=== PATIENT | male | born 1940 | race Caucasian/White ===

== ENCOUNTER 2018-02-03 02:19 | Inpatient (IN) | payer SELFPAY ==
[2018-02-03] VITALS (7 sets, daily range): BP systolic 124–158; BP diastolic 63–71
[~2018-02-03] VITALS: Ht 175.3 cm; Wt 103.1 kg
--- NOTE | 2018-02-03 02:28 | ED.ADGEN ---
Past History Past Medical History: Asthma Adult General Chief Complaint Chief Complaint ".. I just moved here from [facility]. .. I got were ... I could not breath... I got Asthma... ".. My meds are not working..." HPI HPI Patient is a 77 year old male who presents with above hx and complaints of hypoxia and asthma exacerbation. Pt. visiting his son here in [place] from [facility]. the past couple week. Pt. Hx. of prior admits for Asthma exacerbations, but not in last few years. Pt. does not know his best peak flow. Pt. has been on his home meds. Cortan (Prenisolone 10mg) , Salbutamol 12 mg and increased his albuterol usage with out any improvement. Pt. denies specific ill contacts. Pt. not normally on oxygen. Paramedics report on arrival in severe distress with low sats. Now after multiple tx's, sats are 91 % on 2 lt.NC. Review of Systems Review of Systems Constitutional: subject fever or chills [] Eyes: Denies change in visual acuity, redness, or eye pain [] HENT: Denies nasal congestion or sore throat [] Respiratory: Hx cough, shortness of breath , wheezing Cardiovascular: No additional information not addressed in HPI [] GI: Denies abdominal pain, nausea, vomiting, bloody stools or diarrhea [] : Denies dysuria or hematuria [] Musculoskeletal: Denies back pain or joint pain [] Integument: Denies rash or skin lesions [] Neurologic: Denies headache, focal weakness or sensory changes [] Endocrine: Denies polyuria or polydipsia [] All other systems were reviewed and found to be within normal limits, except as documented in this note. Family History Family History Non-contributory Current Medications Current Medications See Nursing for home meds Allergies Allergies No known drug allergies Physical Exam Physical Exam Constitutional: in acute distress, non-toxic appearance. [] HENT: Normocephalic, atraumatic, bilateral external ears normal, oropharynx moist, no oral exudates, nose rhinorrhea. Eyes: PERRLA, EOMI, conjunctiva normal, no discharge. [] Neck: Normal range of motion, no tenderness, supple, no stridor. [] Cardiovascular:Tachycardia Heart rate regular rhythm, no murmur []PMI to Lt. Monitor had Afib/Aflut. Resolved shortly to a sinus. Lungs & Thorax: Bilateral breath sounds equal at apexes, with diffuse wheezing throughout, and some basilar crackles on the left with auscultation []. Does have a concerning finding of right breast mass with nipple retraction. (Pt. reports this has been present more than year) Abdomen: Bowel sounds normal, soft, no tenderness, no masses, no pulsatile masses. [] Skin: Warm, dry, no erythema, no rash. [] Multiple skin lesions Back: No tenderness, no CVA tenderness. [] Extremities: No tenderness, no cyanosis, no clubbing, ROM intact, trace ankle edema. [] Neurologic: Alert and oriented X 3, normal motor function, normal sensory function, no focal deficits noted. [] Psychologic: Affect anxious, judgement normal, mood normal. [] Current Patient Data Vital Signs Vital Signs Date Time Temp Pulse Resp B/P (MAP) Pulse Ox O2 Delivery O2 Flow Rate FiO2 02/03/18 02:21 98.2 76 23 92 Room Air EKG EKG My interpretation of EKG shows irregular p's with Vent. rate 73[] Lt. Fascicular block, Anterior Lateral Changes, Strain pattern. Radiology/Procedures Radiology/Procedures My interpretation of CXR shows Hyper ext. pansion, blunting Lt hahn phrenic angle[], borderline cardiac silhouette. CT of chest pending at time of admission. Course & Med Decision Making Course & Med Decision Making Pertinent Labs and Imaging studies reviewed. (See chart for details) Discussed presentation, testing and tx. plan Dr. Crawford , will admit for further eval and tx. [] Final Impression Final Impression 1. Respiratory Failure- Hypoxia 2. Asthma Exacerbation[] 3. Accelerated Hypertension 4. Episodic Afib/Flutter/Multifocal Atrial rhythms 5. Bronchitis 6. Elev. D-dimer 7. Rt. Breast Mass- adenopathy and nipple retraction Dragon Disclaimer Dragon Disclaimer This electronic medical record was generated, in whole or in part, using a voice recognition dictation system. EDDIE JIMENES MD Feb 03, 2018 02:28
[2018-02-03] MEDS ORDERED: IPRATRPIUM/ALBUTEROL 0.5/2.5MG 3 ML NEBU. ONE (02:40)
--- NOTE | 2018-02-03 02:54 | EKG ---
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
[2018-02-03] MEDS ORDERED: methylPREDNISolone SOD SUCC PF 125 MG/2 ML VIAL. IV ONE (03:00)
[2018-02-03] MEDS ORDERED: ASPIRIN 81 MG TAB.CHEW PO ONE (03:00)
[2018-02-03] MEDS ORDERED: AZITHROMYCIN 250 MG TABLET. PO ONE (03:00)
[2018-02-03] MEDS ORDERED: NITROGLYCERIN OINT 1 GM PACKET. TP ONE (03:00)
[2018-02-03] MEDS ORDERED: IV RINGERS SOLUTION,LACTATED 1,000 ML IV SCH (03:00)
[2018-02-03] MEDS ORDERED: IPRATRPIUM/ALBUTEROL 0.5/2.5MG 3 ML NEBU. NEB ONE (03:00)
[2018-02-03 03:15] LABS: BGAS PH 7.37 (7.35-7.46)
[2018-02-03 03:38] LABS: BASO % 0 % (0-3); EOS # 0.5 x10^3/uL (0.0-0.7); EOS % 4 % (0-3); HEMOGLOBIN 14.5 g/dL (13.0-17.5); LYMPH # 1.6 x10^3/uL (1.0-4.8); LYMPH % 15 % (24-48); MEAN CORPUSCULAR HEMOGLOBIN 30 pg (25-35); MEAN CORPUSCULAR HGB CONC 34 g/dL (31-37); MEAN CORPUSCULAR VOLUME 90 fL (79-100); MONO # 0.7 x10^3/uL (0.0-1.1); MONO % 7 % (0-9); NEUT # 7.9 x10^3uL (1.8-7.7); NEUT % 74 % (31-73); PLATELET COUNT 153 x10^3/uL (140-400); RED CELL DISTRIBUTION WIDTH 14.6 % (11.5-14.5); WHITE BLOOD COUNT 10.7 x10^3/uL (4.0-11.0)
[2018-02-03 04:05] LABS: ALBUMIN 3.5 g/dL (3.4-5.0); CALCIUM 8.8 mg/dL (8.5-10.1); CREATININE 1.4 mg/dL (0.7-1.3); DIRECT BILIRUBIN 0.1 mg/dL (0.0-0.2); GFR 49.1; MAGNESIUM 2.1 mg/dL (1.8-2.4); POTASSIUM 3.9 mmol/L (3.5-5.1); TOTAL BILIRUBIN 0.4 mg/dL (0.2-1.0); TOTAL PROTEIN 7.8 g/dL (6.4-8.2)
[2018-02-03] MEDS ORDERED: ANTI-COAG MONITOR BY PHARMACY. MC PRN (04:45)
[2018-02-03] MEDS ORDERED: CONTRAST GIVEN MC PRN (04:45)
[2018-02-03] MEDS ORDERED: ENOXAPARIN ** NOTE DOSE ** SYRINGE SQ ONE (05:00)
[2018-02-03] MEDS ORDERED: IOHEXOL 300 MG/ML 75 ML VIAL. IV ONE (05:00)
--- NOTE | 2018-02-03 05:55 | RAD ---
INDICATION: SHORTNESS OF BREATH
GAVE OMNI 300 60ML - REDUCED DOSE PROTOCOL, GFR 56 COMPARISON: None. TECHNIQUE: Axial CT images obtained through the chest. Intravenous contrast utilized. Angiogram 3D images processed per protocol. One or more of the following individualized dose reduction techniques were utilized for this examination: 1. Automated exposure control; 2. Adjustment of the mA and/or kV according to patient size; 3. Use of iterative reconstruction technique. FINDINGS: Linear opacities at lung bases. There is also some groundglass opacities at lung bases. 4 mm nodule along the fissure on the right. There is also a sub-4 mm nodular opacity at right lung base. Small hiatal hernia. Calcific atherosclerosis is identified. The ascending thoracic aorta is prominent in size measuring up to about 44 mm. Motion partially obscures the ascending thoracic aorta. Possible focal dissection within the proximal superior mesenteric artery versus artifact through the lumen. The vessel appears patent distal to this site. Coronary artery calcific atherosclerosis. Within the right breast there is a masslike structure identified measuring approximately 48 x 28 mm with some adjacent suspected nodules within the right breast. There is retraction of the skin evident. Degenerative changes of spine. IMPRESSION: No central pulmonary embolus. Within the right anterior chest wall there is a masslike structure identified with some adjacent masslike nodule seen as well as skin retraction. Would correlate with exam finding since a breast neoplasm can have this appearance. May be helpful to obtain a follow-up ultrasound and mammogram to further evaluate when the services are available. Couple of sub-4 mm pulmonary nodules. There is some mild groundglass and linear opacities at the lung bases. Given the location this could all be from atelectasis unless there is high clinical concern for infection. There is some dilatation of the ascending thoracic aorta. Possible focal dissection within the proximal superior mesenteric artery versus artifact through the lumen. The vessel appears patent distal to this site. Fleischner Society recommendations for solitary solid lung nodule follow up.: In a low risk patient: <6mm - No follow up required. 6-8mm - 6-[address], then CT at 18-24 months. >8mm - CT at 3 months, PET/CT or tissue sampling. In a high risk patient (history of smoking or other known risk factors): <6mm - Follow up CT at 12 months. 6-8mm - 6-[address], then CT at 18-24 months. >8mm - CT at 3 months, PET/CT or tissue sampling. Fleischner Society recommendations for multiple solid lung nodule follow up.: In a low risk patient: <6mm - No follow up required. 6-8mm - 3-[address], then CT at 18-24 months. >8mm - CT at 3-6 months, then at 18-24 months. PET/CT or tissue sampling based on most suspicious nodule. In a high risk patient (history of smoking or other known risk factors): <6mm - Follow up CT at 12 months. 6-8mm - 3-[address], then CT at 18-24 months. >8mm - CT at 3-6 months, PET/CT or tissue sampling option based on most suspicious nodule. Electronically signed by: Uche Rios MD (02/03/2018 5:51 AM) [facility]
[2018-02-03] MEDS: IPRATRPIUM/ALBUTEROL 0.5/2.5MG 3 ML NEBU. NEB SCH ×4 (08:00→20:21)
--- NOTE | 2018-02-03 08:40 | RAD ---
PORTABLE CHEST 1V Clinical Indication: SHORTNESS OF BREATH Comparison: None. Findings: Tortuous thoracic aorta. Cardiac size is normal. No pulmonary vascular congestion. Mild bibasilar airspace disease. There is no pneumothorax. No pleural effusion is appreciated. No acute bone abnormality. IMPRESSION: Mild bibasilar airspace disease. Electronically signed by: Inder Victoria MD (02/03/2018 8:37 AM) [id number]
[2018-02-03] MEDS ORDERED: methylPREDNISolone SOD SUCC PF 125 MG/2 ML VIAL. IV SCH (09:00)
[2018-02-03] MEDS: IV NORMAL SALINE 1,000ML 1,000 ML IV SCH ×2 (11:55→20:27)
[2018-02-03] MEDS: ENOXAPARIN 40 MG/0.4 ML SYRINGE. SQ SCH (11:55)
--- NOTE | 2018-02-03 12:32 | HP ---
ADMIT DATE: 02/03/2018 HISTORY OF PRESENT ILLNESS: The patient is a 77-year-old male patient originally from [facility] who lives in [place] and apparently came to visit his son who started complaining of shortness of breath last Friday and his shortness of breath has worsened such that he could not sleep last night, he was unable to lie flat and had recurrent bouts of cough, chest tightness, whitish sputum, and he has been taking his prednisolone, salbutamol as well as his inhaled steroid without much improvement. He denied any chills, rigors, or fever. Apparently, the last time he was admitted because of this problem was in 2000 in [place]. He was extensively investigated in the Emergency Room and has had a chest x-ray, which showed hyperinflation with blunting of the left costophrenic angle. His D-dimer was slightly elevated, so he also had had a CT angio of the chest and was treated with nebulized treatment as well as steroids and IV antibiotic, and was admitted for inpatient treatment with diagnosis of acute asthma exacerbation and acute hypoxic respiratory failure. His blood pressure was high and apparently while in the Emergency Room, he has had episode of atrial fibrillation, flutter/multifocal atrial tachycardia and his D-dimer was elevated. He has a right breast mass with adenopathy and nipple retraction. PAST SURGICAL HISTORY: Unremarkable. ALLERGIES: He has no known drug allergies. MEDICATIONS: He is currently on following medications: He is on beclomethasone inhaler, prednisolone 10 mg once a day, and salbutamol 12 mg. He is not on oxygen at home. FAMILY HISTORY: He has 1 sister, alive, lives in [facility], 1 sister , has 5 brothers, all . Two of them had myocardial infarction, 1 had hypertension and 3 known to have type 2 diabetes. His father at the age of 85 because of CVA and mother at the age of 60 because of diabetes mellitus. SOCIAL HISTORY: He is , has 3 sons and 3 daughters. One daughter of breast cancer. He never smoked, does not drink alcohol. He used to work for an [employer] in [facility].. REVIEW OF SYSTEMS: The patient denied any blurring of vision, cataract, glaucoma, or macular degeneration. Denied any earache, tinnitus, or sensorineural deafness. Denied any nosebleeds, stuffy nose, or postnasal drip. Denied any sore throat, sore tongue, toothache, hoarseness of voice or difficulty swallowing. He denied any dysuria, frequency, or hematuria. Did complain of chest tightness and wheezing. Denied any chills, rigors, or fever. PHYSICAL EXAMINATION: GENERAL: On arrival to the Emergency Room, he looked well and was slightly tachypneic and pale, but no jaundice, cyanosis, or thyromegaly. No jugular venous distension. No limb edema. VITAL SIGNS: His heart rate was 76, blood pressure was 163/85, temperature was 98.2, respiratory rate 23, and oxygen saturation was 92% on room air. HEAD, EYES, EARS, NOSE, AND THROAT: Showed normocephalic, atraumatic. NECK: Supple. HEART: Showed normal first and second heart sounds. No gallop, rub, or murmur. CHEST: Showed central trachea, equal bilateral chest expansion and air entry, vesicular sounds with diffuse rhonchi throughout both lung schmidt. No crepitation. ABDOMEN: Slightly distended, soft, nontender. No guarding or rigidity. No organomegaly. Hernial orifice intact. Bowel sounds normal. NEUROLOGIC: He was awake, alert, responding appropriately. All cranial nerves intact. He moves extremities without difficulty. He ambulates without assistance or assistive devices. LABORATORY DATA: His lab work on admission showed a white cell count of 10,700, hemoglobin 14.5, hematocrit 43, MCV 90 and platelet count of 153,000. Manual differential showed 74% polymorphs, 15% lymphocytes, and 7% monocytes. His blood gases showed a pH of 7.37, pCO2 of 38, pO2 of 62, bicarbonate 22, oxygen saturation was 91% on FiO2 of 21%. His chemistry showed a serum sodium of 139, potassium 3.9, chloride 104, bicarbonate 24, anion gap of 11, BUN 21, creatinine 1.4. Estimated GFR was 49 mL per minute. His glucose was 112, his calcium was 8.8, magnesium 2.1. Total bilirubin, AST, ALT, alkaline phosphatase were normal. His CK was high at 1124 and first set of troponin was 0.037. His BNP was 85. Total protein was 7.8, albumin 3.5. His prothrombin time was 9.9, INR of 1, aPTT 30, and D-dimer was high at 1.95. His chest x-ray showed that the patient has tortuous thoracic aorta. Cardiac size is normal. No pulmonary vascular congestion, mild bibasilar airspace disease. There is no pneumothorax, no pleural effusion is appreciated, and no acute bony abnormality. Given the elevated D-dimer, the patient underwent CT angio of the chest, which showed that there is no central pulmonary emboli. Within the right anterior chest wall, there is a mass-like structure identified with some adjacent mass-like nodules seen as well as skin retraction, findings suggestive of breast neoplasm that can have similar appearance and the radiologist recommended doing a followup ultrasound and/or mammogram for further evaluation. He has some small pulmonary nodules. There is some mild ground glass and linear opacities at the lung bases. Given location, this could also be from atelectasis unless there is high suspicion for infection. There is some dilatation of the ascending thoracic aorta, possible focal dissection within the proximal superior mesenteric artery versus artifactual through the lumen. The vessels appeared patent distal to this site. ASSESSMENT: The patient was admitted with acute asthma exacerbation, acute hypoxic respiratory failure, hypertension, elevated D-dimer with negative CT angio of the chest for pulmonary emboli. He has right breast mass with adenopathy and nipple retraction consistent with probable breast cancer. He has also elevated CK consistent with rhabdomyolysis, although he is not on any medication that induced that. PLAN: My plan is to continue with nebulized treatment. Continue with the steroids and IV antibiotic. I will cut down his Lovenox to prophylactic treatment only. Continue with IV fluid and monitor her CK and his clinical response. JACOB SANCHEZ MD DR: REYNA/chintan JOB#: [id number] / [id number]
[2018-02-03] MEDS: methylPREDNISolone SOD SUCC PF 40 MG/ML VIAL. IV SCH ×2 (14:30→21:43)
--- NOTE | 2018-02-03 16:48 | RAD ---
EXAM: Bilateral lower extremity venous Doppler sonogram. HISTORY: Elevated d-dimer. Dyspnea. Swelling. TECHNIQUE: Diaz scale and color Doppler sonographic evaluation of the bilateral lower extremity veins with spectral waveform analysis was performed. FINDINGS: There is normal color flow, normal compressibility and there are normal spectral waveforms in the common femoral, superficial femoral, popliteal, posterior tibial and greater saphenous veins. IMPRESSION: No Doppler evidence of lower extremity deep venous thrombosis. Electronically signed by: Mami Gordon MD (02/03/2018 4:45 PM) [place] [id number]
[2018-02-03] MEDS: AZITHROMYCIN 250 MG TABLET. PO SCH (20:27)
[2018-02-03] MEDS ORDERED: ENOXAPARIN ** NOTE DOSE ** SYRINGE SQ SCH (21:00)
[2018-02-03 22:24] LABS: AMPHETAMINE/METHAMPHETAMINE NEG (NEG); BARBITURATES NEG (NEG); BENZODIAZEPINES NEG (NEG); CANNABINOIDS NEG (NEG); COCAINE NEG (NEG); METHADONE NEG (NEG); OPIATES NEG (NEG); PHENCYCLIDINE NEG (NEG)
[2018-02-03 22:41] LABS: BILIRUBIN,URINE NEG (NEG); CLARITY,URINE CLEAR; COLOR,URINE YELLOW; GLUCOSE,URINE NEG (NEG)
[2018-02-03 22:42] LABS: BACTERIA,URINE 0 /HPF (0-FEW); NITRITE,URINE NEG (NEG); UROBILINOGEN,URINE 0.2 mg/dL (0.2 mg/dL); WBC,URINE 0 /HPF (0-4)
[2018-02-04 03:40] VITALS: BP 153/81
[2018-02-04] MEDS: IPRATRPIUM/ALBUTEROL 0.5/2.5MG 3 ML NEBU. NEB SCH ×4 (05:18→21:38)
[2018-02-04] MEDS: methylPREDNISolone SOD SUCC PF 40 MG/ML VIAL. IV SCH ×2 (05:48→14:19)
[2018-02-04 05:50] VITALS: BP 151/74
[2018-02-04 06:54] LABS: BASO % 0 % (0-3); EOS % 0 % (0-3); HEMATOCRIT 43.6 % (39.0-53.0); HEMOGLOBIN 14.4 g/dL (13.0-17.5); LYMPH # 1.7 x10^3/uL (1.0-4.8); LYMPH % 9 % (24-48); MEAN CORPUSCULAR HEMOGLOBIN 30 pg (25-35); MEAN CORPUSCULAR HGB CONC 33 g/dL (31-37); MEAN CORPUSCULAR VOLUME 90 fL (79-100); MONO # 0.7 x10^3/uL (0.0-1.1); MONO % 4 % (0-9); NEUT # 15.7 x10^3uL (1.8-7.7); NEUT % 87 % (31-73); PLATELET COUNT 165 x10^3/uL (140-400); RED BLOOD COUNT 4.87 x10^6/uL (4.30-5.70); RED CELL DISTRIBUTION WIDTH 14.8 % (11.5-14.5); WHITE BLOOD COUNT 18.1 x10^3/uL (4.0-11.0)
[2018-02-04 07:08] LABS: CALCIUM 8.8 mg/dL (8.5-10.1); CREATININE 1.1 mg/dL (0.7-1.3); GFR 64.9; POTASSIUM 4.3 mmol/L (3.5-5.1)
[2018-02-04 08:18] LABS: % BANDS 3 % (0-9); % BASOS 0 % (0-3); % EOS 0 % (0-5); % LYMPHS 10 % (24-48); % MONOS 2 % (0-10); % SEGS 85 % (35-66); PLT ESTIMATE ADEQUATE (ADEQUATE)
[2018-02-04] MEDS: IV NORMAL SALINE 1,000ML 1,000 ML IV SCH ×3 (08:31→21:08)
[2018-02-04] MEDS: ENOXAPARIN 40 MG/0.4 ML SYRINGE. SQ SCH (08:39)
[2018-02-04 11:00] VITALS: BP 150/78
[2018-02-04 16:01] VITALS: BP 156/68
[2018-02-04 20:30] VITALS: BP 160/91
[2018-02-04] MEDS: AZITHROMYCIN 250 MG TABLET. PO SCH (21:08)
[2018-02-04] MEDS: LACTOBACILLUS RHAMNOSUS GG 1 CAPSULE. PO SCH (21:08)
--- NOTE | 2018-02-04 23:10 | PN ---
DATE: 02/04/2018 SUBJECTIVE: The patient is resting, slightly propped up in bed, in no apparent respiratory distress. He feels generally better, continued to have some chest tightness and wheezing, although much improved than before. His CK is trending down. PHYSICAL EXAMINATION: GENERAL: When I examined him, he looked well and was clearly in no apparent respiratory distress, pale, but no jaundice, cyanosis, or thyromegaly. No jugular venous distension. No lower limb edema. VITAL SIGNS: His heart rate was 67, blood pressure 150/78, temperature was 98, respiratory rate was 20 and oxygen saturation was 92% on room air, dropped down to 89 on exertion and come back immediately to 95% sitting on the edge of the bed. HEAD, EYES, EARS, NOSE AND THROAT: Showed normocephalic, atraumatic. NECK: Supple. HEART: Showed normal first and second heart sounds with no gallop, rub or murmur. CHEST: Shows central trachea, equal bilateral expansion, air entry, vesicular sounds with scattered rhonchi, I could not appreciate any crepitation. ABDOMEN: Distended, soft, nontender. NEUROLOGIC: He is awake, alert, responding appropriately. All his cranial nerves are intact. He moves extremities without difficulty. He has a mass in the right breast consistent with malignancy. His intake over the last 24 hours was 2600, output 1450. LABORATORY DATA: This morning showed a serum sodium 139, potassium 4.3, chloride 106, bicarbonate 23, anion gap of 10, BUN 19, creatinine 1.1. Estimated GFR was 65 mL per minute. His glucose was 118. Calcium was 8.8. His CK was down to 696 from 1100. White cell count is up to 18,100, hemoglobin 14, hematocrit 44, MCV 90 and platelet count of 165,000. ASSESSMENT: 1. Acute severe asthma. 2. Acute hypoxic respiratory failure. 3. Hypertension. 4. Elevated D-dimer with negative CT angio for pulmonary emboli. 5. Right breast mass with adenopathy and nipple retraction consistent with probable breast cancer. 6. Rhabdomyolysis. PLAN: To continue with IV fluid. Continue with DVT prophylaxis. Continue with azithromycin. I will cut down his steroids, who witnessed these have a prednisone steroid Solu-Medrol. I will taper down the steroids and hopefully he can be discharged home tomorrow on tapering course of steroids. JACOB SANCHEZ MD DR: Doreen JOB#: [id number] / [id number]
[2018-02-04 23:14] VITALS: BP 147/75
[2018-02-05] MEDS ORDERED: methylPREDNISolone SOD SUCC PF 40 MG/ML VIAL. IV SCH (02:00)
[2018-02-05] MEDS: IPRATRPIUM/ALBUTEROL 0.5/2.5MG 3 ML NEBU. NEB SCH ×2 (05:19→10:49)
[2018-02-05 05:44] VITALS: BP 157/96
[2018-02-05 05:50] VITALS: BP 151/85
[2018-02-05 08:09] LABS: CALCIUM 8.4 mg/dL (8.5-10.1); CREATININE 1.1 mg/dL (0.7-1.3); GFR 64.9; POTASSIUM 4.1 mmol/L (3.5-5.1)
[2018-02-05] MEDS: ENOXAPARIN 40 MG/0.4 ML SYRINGE. SQ SCH (08:58)
[2018-02-05] MEDS: LACTOBACILLUS RHAMNOSUS GG 1 CAPSULE. PO SCH (08:58)
--- NOTE | 2018-02-05 21:22 | DS ---
DATE OF DISCHARGE: 02/05/2018 HOSPITAL COURSE: The patient was admitted with acute severe asthma. He was also noted to have rhabdomyolysis. We will start him on IV fluid, nebulized albuterol and Atrovent as well as IV steroids. He did actually very well. PHYSICAL EXAMINATION: GENERAL: When I saw him this afternoon, he was sitting on the edge of the bed comfortably. in no apparent respiratory distress. No pallor, jaundice, cyanosis or thyromegaly. No jugular venous distension. No lower limb edema. VITAL SIGNS: His heart rate was 80, blood pressure was 130/80, temperature was 98, respiratory rate was 18 and oxygen saturation was 94% on room air. HEAD, EYES, EARS, NOSE AND THROAT: Showed normocephalic, atraumatic. NECK: Supple. HEART: Showed normal first and second heart sounds with no gallop, rub or murmur. CHEST: Clear to auscultation. No crepitation or rhonchi. ABDOMEN: Distended, soft, nontender. No guarding or rigidity. No organomegaly. Hernial orifice intact. Bowel sounds normal. NEUROLOGIC: He was awake, alert, responding appropriately. All his cranial nerves are intact. EXTREMITIES: He moves extremities without difficulty. He ambulates without assistance or assistive devices. LABORATORY DATA: His lab works were reviewed and are all within acceptable range. His CK came down from 1200 to 300. DISCHARGE MEDICATIONS: The patient was discharged on prednisone taper 40 mg once a day for 3 days, 30 mg once a day for 3 days, 20 mg once a day for 3 days and finally 10 mg once a day for 3 days. He was also given a prescription for nebulizer machine, nebulized albuterol solution as well as albuterol inhaler. He has a mass in the right breast, most likely malignant and I have recommended highly that he should look into it and seek surgical treatment. FINAL DISCHARGE DIAGNOSES: 1. Acute severe asthma. 2. Rhabdomyolysis. 3. Right-sided male breast cancer. JACOB SANCHEZ MD DR: REYNA/chintan JOB#: [id number] / [id number]
== END 2018-02-05 13:55 | disposition home or self-care (01) | DRG 189 ==
LOC: ER 02:19 → ICU 02:30 → 1 SOUTH 02-04 09:56
PROVIDERS: ADMIT Internal Medicine; ATTEND Internal Medicine
DX: J96.01 Acute respiratory failure with hypoxia (principal); J45.901 Unspecified asthma with (acute) exacerbation; M62.82 Rhabdomyolysis; I47.1 Supraventricular tachycardia; I48.92 Unspecified atrial flutter; I10 Essential (primary) hypertension; C50.921 Malignant neoplasm of unspecified site of right male breast; I48.91 Unspecified atrial fibrillation; N64.53 Retraction of nipple; Z80.3 Family history of malignant neoplasm of breast; Z82.3 Family history of stroke; Z82.49 Family history of ischemic heart disease and other diseases of the circulatory system; Z83.3 Family history of diabetes mellitus; Z79.899 Other long term (current) drug therapy
CPT/HCPCS: 36415; 71045; 71275; 80048; 80076; 80307; 81001; 82550; 82553; 82803; 83690; 83735; 83880; 84443; 84484; 85007; 85025; 85379; 85610; 85730; 87040; 87641; 93005; 93970; 94640; 96361; 96372; 96374; G0238; J0456; J1650; J2920; J2930; J7120; J7620; Q9967; 99285-25; G0479; J7030